=== PATIENT | male | born 1995 | race Caucasian/White ===

== ENCOUNTER 2023-07-10 12:50 | Emergency (ER) | payer SELFPAY ==
[~2023-07-10] VITALS: Ht 157.5 cm; Wt 56.7 kg
[2023-07-10 12:55] VITALS: BP_SYST 125; PULSE 115; RESP 22; TEMP 98.6; O2SAT 94
[2023-07-10] MEDS ORDERED: methylPREDNISolone SOD SUCC/PF 62.5 MG/ML VIAL IVP ONE (13:00)
[2023-07-10] MEDS ORDERED: IPRATROPIUM BROM 0.5 MG/2.5 ML VIAL.NEB (ATROVENT) INH ONE ×2 (13:00→14:00)
[2023-07-10] MEDS ORDERED: NACL 0.9% 1,000 ML IV ONE (13:00)
[2023-07-10] MEDS ORDERED: EPINEPHrine HCL 1 MG/ML VIAL IM ONE (13:00)
[2023-07-10] MEDS ORDERED: MAGNESIUM SULFATE 50 ML IV ONE (13:00)
[2023-07-10] MEDS ORDERED: ALBUTEROL SULFATE 0.083% 2.5 MG/3 ML VIAL.NEB INH ONE ×2 (13:00→14:00)
[2023-07-10] MEDS ORDERED: ALBMDI INH (15:12)
[2023-07-10] MEDS ORDERED: PRED20TA PO (15:12)
[2023-07-10 15:26] VITALS: BP_SYST 108; PULSE 100; RESP 20; TEMP 98.2; O2SAT 97
== END 2023-07-10 15:23 | disposition home or self-care (01) ==
LOC: SED 12:50
DX: J45.901 Unspecified asthma with (acute) exacerbation (principal); R06.02 Shortness of breath; Z79.899 Other long term (current) drug therapy
CPT/HCPCS: 99285; 96365; 96366; 96375; 96372; 94640; J0171; J3475; J2930